=== PATIENT | female | born 1940 | race Caucasian/White ===

== ENCOUNTER → 2016-04-05 | Outpatient (CLI) | payer OTHER, BC ==
--- NOTE | 2016-04-05 14:32 | NM ---
Nuclear Medicine Gastric Emptying Study Clinical Indications: Nausea and vomiting. Evaluate for gastroparesis. Technique: The patient swallowed 2.3 mCi technetium 99m sulfur colloid mixed with solid food. Image s of the abdomen were obtained in the upright position at 10 minute intervals for a total of 90 minut es. A time-activity curve was plotted for the stomach. Findings: Activity promptly reaches the stomach, and egress into the small bowel occurs without sign ificant delay. The half-time of gastric emptying is 57 minutes, which is within normal limits. Impression: Normal.
== END ==
LOC: FIMAGING 07:50
PROVIDERS: ATTEND Physician Assistant
DX: R11.2 Nausea with vomiting, unspecified (principal)
CPT/HCPCS: 78264; A9541

== ENCOUNTER → 2016-05-09 | Outpatient (CLI) | payer OTHER, BC | LOC: FIMAGING 08:37 | PROVIDERS: ATTEND Physician Assistant | DX: R13.14 Dysphagia, pharyngoesophageal phase (principal); K21.9 Gastro-esophageal reflux disease without esophagitis; K22.4 Dyskinesia of esophagus ==

== ENCOUNTER → 2016-05-13 | Outpatient (CLI) | payer OTHER, BC | LOC: FIMAGING 14:29 | DX: Z12.31 Encounter for screening mammogram for malignant neoplasm of breast (principal) | CPT/HCPCS: G0202 ==

== ENCOUNTER → 2016-05-23 | Outpatient (CLI) | payer OTHER, BC | LOC: FIMAGING 14:44 | PROVIDERS: ATTEND Internal Medicine | DX: N60.12 Diffuse cystic mastopathy of left breast (principal) | CPT/HCPCS: 76641; G0206 ==

== ENCOUNTER 2016-09-06 21:33 | Emergency (ER) | payer OTHER, BC ==
[2016-09-06] MEDS ORDERED: ACETAMINOPHEN 500 MG TAB PO ONE (21:57)
[2016-09-06] MEDS ORDERED: LIDOCAINE 5% 1 EA PATCH TD ONE (21:57)
[2016-09-06] MEDS ORDERED: GABAPENTIN 300 MG CAP PO ONE (21:57)
[2016-09-06 22:02] VITALS: BP 151/81; PULSE 71; RESP 16; TEMP 98.1; O2SAT 94
--- NOTE | 2016-09-06 22:41 | EDPHY ---
H & P Time Seen by Provider: 09/06/16 21:52 HPI/ROS: CHIEF COMPLAINT: Back pain HISTORY OF PRESENT ILLNESS: 76-year-old female presents emergency department reporting that for the last week she has had gradually increasing left low back pain/SI joint pain with radiation into her left buttock and lateral thigh. She moved table earlier today had a significant increase in her pain. Patient has taken ibuprofen without relief. In the past she has had injections which have provided good pain relief. She does have a past history of spinal stenosis, has had micro diskectomy performed by Dr. Flores. Patient denies any numbness or tingling. Pain does radiate into her left buttock and onto the side of her left thigh. No weakness. No bowel or bladder difficulties. Patient has made an appointment to see Dr. Zuniga for injection next week. She was otherwise well prior to these events. No fevers or chills. No recent falls. REVIEW OF SYSTEMS: Aside from elements discussed in the HPI, a comprehensive 10-point review of systems was reviewed and is negative. PAST MEDICAL HISTORY: Spinal stenosis. Hypertension, hyperlipidemia. SOCIAL HISTORY: Patient is . General appearance: Uncomfortable appearing. Moving slowly about the gurney and walking slowly into room. Patient indicates the area pain over the left SI area. Focused examination of back: No trauma is noted. No tenderness to palpation along the lumbar spine. Tenderness to palpation deep over the sacrum near the SI area. Neurological exam: Straight leg raise test is negative bilaterally. Hip flexion, knee extension, knee flexion, dorsiflexion and plantar flexion are 5/ 5 bilaterally. EHL 5 over 5. Sensation is intact to light touch throughout. 2 + knee and ankle jerk bilaterally. Vascular exam: Dorsalis pedis and posterior tibial pulses are intact. Brisk capillary refill. Smoking Status: Never smoked Constitutional: Initial Vital Signs Temperature (C) 36.7 C 09/06/16 22:00 Heart Rate 71 09/06/16 22:00 Respiratory Rate 16 09/06/16 22:00 Blood Pressure 151/81 H 09/06/16 22:00 O2 Sat (%) 94 09/06/16 22:00 O2 Delivery Mode Room Air Allergies/Adverse Reactions: codeine [Codeine] Allergy (Unknown, Verified 09/06/16 22:02) Other-Enter Comments morphine [Morphine] Allergy (Unknown, Verified 09/06/16 22:02) Other-Enter Comments prochlorperazine [Prochlorperazine] Allergy (Unknown, Verified 09/06/16 22:02) Other-Enter Comments Sulfa (Sulfonamide Antibiotics) Allergy (Unknown, Verified 09/06/16 22:02) Rash Home Medications: Medication Instructions Recorded CALCIUM 09/24/13 Multaq 400 mg (RX) 09/24/13 Spironolactone 09/24/13 Aspirin [Aspirin 81mg (OTC)] 06/05/14 Fishs [place]-3 Fatty Acids [Fish Oil] 06/05/14 busPIRone [Buspar] 15 mg PO 06/05/14 Atorvastatin Calcium [Lipitor] 40 mg PO DAILY 02/04/15 Cholecalciferol Vit D3 [Vitamin D3 02/04/15 (OTC)] Cyanocobalamin [Vitamin B12 (OTC)] 02/04/15 LORAZEPAM 07/29/15 Probiotic 07/29/15 Ranitidine HCl 07/29/15 Cyclobenzaprine [Flexeril 10 MG 10 mg PO TID PRN #20 tab 09/06/16 (RX)] methylPREDNISolone [Medrol Dose 4 mg PO DAILY #1 each 09/06/16 [facility]] Medical Decision Making ED Course/Re-evaluation: 76-year-old female with a history of spinal stenosis requiring some spinal surgery previously. For the last several days she has had pain in the left lower back/sacral area with radiation into the buttock. Pain was so severe last night that she woke to take ibuprofen. She reports an exacerbation of this pain when moving a table today. Patient received lidocaine patch, Toradol, Decadron, and Flexeril. She reports improvement with these treatments. She will be discharged to follow up with Dr. Zuniga as previously scheduled to receive an injection. She was given a prepack of [place] to use if needed for severe discomfort and inability to sleep. She understands reasons to return to the emergency department and was given back brain precautions including worsening pain, weakness, numbness or tingling, bowel or bladder difficulties. Differential Diagnosis: After history was obtained and physical exam performed, the differential for back pain was considered including but not limited to muscular pain, herniated disc, diskitis, epidural abscess, spine fracture, intra-abdominal causes, and urinary tract infection. - Data Points Medications Given: Discontinued Medications Acetaminophen (Tylenol) 1,000 mg PO EDNOW ONE Stop: 09/06/16 21:58 Last Admin: 09/06/16 22:00 Dose: 1,000 mg Gabapentin (Neurontin) 600 mg PO EDNOW ONE Stop: 09/06/16 21:58 Last Admin: 09/06/16 22:00 Dose: 600 mg Lidocaine (Lidoderm 5%) 1 ea TD EDNOW ONE Stop: 09/06/16 21:58 Last Admin: 09/06/16 22:00 Dose: 1 ea Miscellaneous Information (Patch Removal) 1 ea TD DAILY21 CELIA Stop: 03/06/17 20:59 Last Admin: 09/06/16 22:41 Dose: 1 ea Departure - Departure Disposition: Home, Routine, Self-Care Clinical Impression: Back pain of lumbosacaral region with sciatica Condition: Good Instructions: Sacroiliitis (ED), Back Pain (ED) Additional Instructions: Musculoskeletal pain is often treated with anti-inflammatories, muscle relaxants , and pain medications. 1. I recommend Ibuprofen (Motrin, Advil) or Naproxen Sodium (Aleve) for pain and anti-inflammatory effects. You may take either one, but do not take both. Your dose is: Ibuprofen 600 mg every 6-8 hours with food. OR Naproxen Sodium (Aleve) 220 mg every 12 hours. You have also been given a prescription for a Medrol Dosepak to use as directed to treat inflammation. Please begin taking this tomorrow. 2. For muscle relaxation, you been given a prescription of Flexeril. Please take this as directed. It may make you sleepy. 3. For pain relief, I suggest high-dose Tylenol (650mg-1000mg of Tylenol) up to 3 times a day. Not exceed 3000 mg in a 24 hour period. I also suggest lidocaine patches. 4% lidocaine patches are available over-the- counter. Apply ice for 20-30 minutes every 2-3 hours for the next 48 hours. After 48 hours, a heating pad or hot tub may feel better. Please follow up with your primary care physician if you're not improving as expected in the next several days. Please follow up with orthopedic surgeon as previously scheduled to consider an injection. Return to the emergency department if you experience significantly worsening pain, pain radiating into the legs, weakness, numbness or tingling, difficulties with bowel or bladder, fever, nausea, vomiting, or other concerns. Referrals: Elizabeth Peoples MD [Primary Care Provider] - As per Instructions Beny Zuniga MD [Medical Doctor] - As per Instructions (Follow-up as previously scheduled.) Prescriptions: Cyclobenzaprine [Flexeril 10 MG (RX)] 10 mg PO TID PRN #20 tab PRN Reason: Muscle Spasms methylPREDNISolone [Medrol Dose Jace] 4 mg PO DAILY #1 each
[2016-09-06] MEDS ORDERED: HYDROCOD/APAP 5/325 PREPACK#6 BTL TAKEHOME ONE (22:42)
[2016-09-07] MEDS ORDERED: PATCH REMOVAL 1 EA PATCH TD SCH (21:00)
== END 2016-09-06 22:45 | disposition home or self-care (01) ==
LOC: CED 21:33
DX: M54.40 Lumbago with sciatica, unspecified side (principal); I10 Essential (primary) hypertension; Z79.82 Long term (current) use of aspirin

== ENCOUNTER → 2016-10-09 | Outpatient (CLI) | payer OTHER, BC | LOC: FIMAGING 13:31 | PROVIDERS: ATTEND Physician Assistant | DX: M43.16 Spondylolisthesis, lumbar region (principal); M51.86 Other intervertebral disc disorders, lumbar region; M48.06 Spinal stenosis, lumbar region; M46.96 Unspecified inflammatory spondylopathy, lumbar region; M46.97 Unspecified inflammatory spondylopathy, lumbosacral region ==

== ENCOUNTER → 2017-05-16 | Outpatient (CLI) | payer OTHER, BC | LOC: FIMAGING 13:07 | PROVIDERS: ATTEND Internal Medicine | DX: Z12.31 Encounter for screening mammogram for malignant neoplasm of breast (principal) ==

== ENCOUNTER → 2018-05-19 | Outpatient (CLI) | payer OTHER, BC | LOC: FIMAGING 13:48 | PROVIDERS: ATTEND Internal Medicine | DX: Z12.31 Encounter for screening mammogram for malignant neoplasm of breast (principal) ==